=== PATIENT | male | born 1965 | race Caucasian/White ===

== ENCOUNTER 2017-08-23 00:57 | Emergency (ER) | payer BC ==
[~2017-08-23] VITALS: Ht 175.3 cm; Wt 103.2 kg
[2017-08-23] MEDS ORDERED: HYZAAR1 TA1 PO (01:26)
[2017-08-23 02:22] LABS: HEMATOCRIT 44.9 % (39.0-50.0); HEMOGLOBIN 15.4 g/dl (14.0-18.0); IMMATURE GRANULOCYTES 0.3 % (0.0-1.0); MEAN CELL VOLUME 87.2 fL CALC (80.0-100.0); MEAN CORPUSCULAR HGB 29.9 pG CALC (26.0-32.0); MEAN CORPUSCULAR HGB CONC 34.3 g/L CALC (32.0-36.0); NEUT# 9.97 thou/uL (1.82-7.42); RED BLOOD COUNT 5.15 mill/uL (4.70-6.10); RED CELL DISTRI WIDTH 12.6 % (11.5-15.5)
[2017-08-23] MEDS ORDERED: ZOFRAN4 M1 PO ×2 (02:36→04:25)
[2017-08-23 02:38] LABS: ALBUMIN 4.6 g/dL (3.2-5.0); ALKALINE PHOSPHATASE 80 u/l (38-126); ANION GAP 18 (6-22 (CALC)); BILIRUBIN, TOTAL 1.6 mg/dL (0.0-1.4); BUN 21 mg/dL (9-20); BUN/CREATININE RATIO 21 (12-20 (CALC)); CALCIUM 9.8 mg/dL (8.4-10.2); CARBON DIOXIDE 22 mmol/l (22-30); CHLORIDE 107 mmol/l (95-108); GFR > 60 ML/MIN (>=60 (CALC)); GFR FOR AFR.AMER. > 60 ML/MIN (>=60 (CALC)); GLUCOSE 110 mg/dL (75-110); LIPASE 68 u/l (23-300); POTASSIUM 4.5 mmol/l (3.5-5.1); SGOT/AST 40 u/l (17-59); SGPT/ALT 54 u/l (21-72); SODIUM 143 mmol/l (137-146); TOTAL PROTEIN 7.3 g/dL (6.3-8.2)
[2017-08-23 04:00] LABS: URINE BILIRUBIN - DIPSTICK NEGATIVE (NEGATIVE); URINE BLOOD DIPSTICK NEGATIVE (NEGATIVE); URINE CLARITY SL CLOUDY; URINE COLOR YELLOW; URINE GLUCOSE - DIPSTICK NEGATIVE (NEGATIVE); URINE KETONE NEGATIVE (NEGATIVE); URINE LEUK ESTERASE NEGATIVE (NEGATIVE); URINE NITRITE - DIPSTICK NEGATIVE (Negative); URINE PROTEIN - DIPSTICK NEGATIVE (NEG-TRACE); URINE UROBILINOGEN - DIPSTICK 0.2 E.U./dL (0.2)
[2017-08-23 04:45] VITALS: BP 117/77
== END 2017-08-23 04:48 | disposition home or self-care (01) | DRG 392 ==
LOC: ED 00:57
PROVIDERS: Family Medicine
DX: K52.9 Noninfective gastroenteritis and colitis, unspecified (principal); I10 Essential (primary) hypertension

== ENCOUNTER 2019-06-06 20:37 | Observation (INO) | payer BC ==
[~2019-06-06] VITALS: Ht 175.3 cm; Wt 48.2 kg
[~2019-06-06 20:37] MED LIST: HYZAAR1 TA1 PO; ZOFRAN4 M1 PO
--- NOTE | 2019-06-06 20:51 | NUR ---
PT TO ROOM W/STEADY GAIT.
[2019-06-06] MEDS ORDERED: NORVASC5 M1 PO (20:52)
[2019-06-06 21:44] LABS: HEMATOCRIT 42.7 % (39.0-50.0); HEMOGLOBIN 14.4 g/dl (14.0-18.0); IMMATURE GRANULOCYTES 0.2 % (0.0-5.0); MEAN CORPUSCULAR HGB 29.7 pG CALC (26.0-32.0); MEAN CORPUSCULAR HGB CONC 33.7 g/L CALC (32.0-36.0); NEUT# 3.45 thou/uL (1.82-7.42); RED BLOOD COUNT 4.85 mill/uL (4.70-6.10); RED CELL DISTRI WIDTH 12.2 % (11.5-15.5)
[2019-06-06 22:00] LABS: ALBUMIN 4.4 g/dL (3.2-5.0); ALKALINE PHOSPHATASE 74 u/l (38-126); ANION GAP 15 (6-22 (CALC)); BUN 18 mg/dL (9-20); BUN/CREATININE RATIO 17 (12-20 (CALC)); CARBON DIOXIDE 25 mmol/l (22-30); CHLORIDE 103 mmol/l (95-108); GFR > 60 ML/MIN (>=60 (CALC)); GFR FOR AFR.AMER. > 60 ML/MIN (>=60 (CALC)); POTASSIUM 3.7 mmol/l (3.5-5.1); SGOT/AST 38 u/l (17-59); SODIUM 139 mmol/l (137-146); TOTAL PROTEIN 7.5 g/dL (6.3-8.2)
[2019-06-06 22:02] LABS: BILIRUBIN, TOTAL 0.9 mg/dL (0.0-1.4)
[2019-06-06 22:11] LABS: MYOGLOBIN 32 ng/mL (0 - 121)
[2019-06-06 22:33] LABS: URINE BILIRUBIN - DIPSTICK NEGATIVE (NEGATIVE); URINE BLOOD DIPSTICK NEGATIVE (NEGATIVE); URINE COLOR YELLOW; URINE GLUCOSE - DIPSTICK NEGATIVE (NEGATIVE); URINE KETONE NEGATIVE (NEGATIVE); URINE NITRITE - DIPSTICK NEGATIVE (Negative); URINE PROTEIN - DIPSTICK NEGATIVE (NEG-TRACE); URINE UROBILINOGEN - DIPSTICK 0.2 E.U./dL (0.2)
[2019-06-06 22:34] LABS: URINE LEUK ESTERASE NEGATIVE (NEGATIVE)
[2019-06-06 22:35] LABS: BARBITURATES NEGATIVE (NEGATIVE); COCAINE NEGATIVE (NEGATIVE); METHADONE NEGATIVE (NEGATIVE); OXCYCODONE NEGATIVE (NEGATIVE); TETRAHYDROCANNABIONOL NEGATIVE (NEGATIVE); TRICYLIC ANTIDEPRESSANTS NEGATIVE (NEGATIVE)
--- NOTE | 2019-06-06 22:57 | NUR ---
IN ROOM TO DISCUSS CLINICAL FINDINGS WITH PT. VERBALIZED UNDERSTANDING. PT. ALSO MADE AWARE OF ADMISSION.
--- NOTE | 2019-06-06 23:57 | NUR ---
MD IN ROOM MADE PT. AWARE OF CLINICAL FINDINGS. ALSO MADE PT. AWARE OF ADMISSION, VERBALIZED UNDERSTANDING.
--- NOTE | 2019-06-07 00:57 | NUR ---
PT. HAS NO C/O CP OR SOB OFFERED AT THIS TIME, V/S STABLE.
--- NOTE | 2019-06-07 01:08 | NUR ---
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
--- NOTE | 2019-06-07 01:35 | NUR ---
PT. TO [facility] FLOOR VIA STRETCHER, NO C/O.
[2019-06-07 01:41] VITALS: BP 110/75
--- NOTE | 2019-06-07 01:41 | NUR ---
PT ARRIVED TO THE FLOOR VIA WHEELCHAIR, ACCOMPANIEED BY ED STAFF. PT ALERT AND ORIENTED. PT AMULATED FROM WHEEL CHAIR TO BSC TO BED. RESPIRATIONS EVEN AND UNLABORED ON RA, LUNGS SOUND CLEAR. PEDAL PULSES ARE STRONG. PT DENIES ANY PAIN OR DISCOMFORT AT THIS TIME. #20 LAC PATENT AND APPEARS HEALTHY. PT ORIENTED TO ROOM AND CALL [facility]. SAFETY PRECAUTIONS IN PLACE. WILL CONTINUE TO MONITOR.
--- NOTE | 2019-06-07 04:12 | NUR ---
PT RESTING IN BED, RESPIRATIONS EVEN AND UNLABORED ON RA. TELE IN PLACE. NO S/S OF DISTRESS AT THIS TIME. WILL CONTINUE TO MONITOR.
[2019-06-07 04:39] VITALS: BP 100/57
[2019-06-07 07:22] VITALS: BP 113/69
--- NOTE | 2019-06-07 08:04 | NUR ---
ASSESSMENT DONE. PT IS A&O X3. PT DENIES PAIN AT THIS TIME. RESPS EVEN AND UNLABORED. PT DENIES NEEDS AT THIS TIME. CALL LIGHT IN REACH.
[2019-06-07] MEDS ORDERED: HYZAAR1 TA2 PO (10:06)
[2019-06-07 11:17] VITALS: BP 130/78
--- NOTE | 2019-06-07 11:24 | NUR ---
Discharge instructions given. Patient verbalizes understanding of same. Discharged in stable condition via Wheelchair to Home with spouse. All belongings sent with pt.
== END 2019-06-07 11:24 | disposition home or self-care (01) | DRG 313 ==
LOC: ED 20:37 → ED-I 21:11 → ED 21:11 → ED-I 22:40 → MS2 06-07 00:34 → ED 06-07 00:34 → MS2 06-07 11:24
PROVIDERS: Emergency Medicine; ADMIT Internal Medicine; ATTEND Internal Medicine
DX: R07.89 Other chest pain (principal); R42 Dizziness and giddiness; I10 Essential (primary) hypertension; Z82.49 Family history of ischemic heart disease and other diseases of the circulatory system
CPT/HCPCS: G0378